=== PATIENT | female | born 1955 | race Caucasian/White ===

== ENCOUNTER 2023-06-17 23:52 | Emergency (ER) | payer BC, MEDICARE ==
[~2023-06-17] VITALS: Ht 167.6 cm; Wt 68.2 kg
[2023-06-18] MEDS ORDERED: LIDOCAINE 1% MDV 20ML VIAL As Ordered ONE (01:15)
[2023-06-18] MEDS ORDERED: LIDOCAINE 1% MDV 20ML VIAL SC ONE (01:15)
[2023-06-18 02:24] VITALS: BP 153/86; TEMP 99; O2SAT 98
== END 2023-06-18 02:25 | disposition home or self-care (01) ==
LOC: M ED 23:52
DX: S01.01XA Laceration without foreign body of scalp, initial encounter (principal); W01.0XXA Fall on same level from slipping, tripping and stumbling without subsequent striking against object, initial encounter; F32.A Depression, unspecified; I10 Essential (primary) hypertension; E78.5 Hyperlipidemia, unspecified; F10.10 Alcohol abuse, uncomplicated; Y92.009 Unspecified place in unspecified non-institutional (private) residence as the place of occurrence of the external cause